=== PATIENT | male | born 1975 | race Caucasian/White ===

== ENCOUNTER 2021-03-07 09:32 | Emergency (ER) | payer BC ==
[~2021-03-07] VITALS: Ht 177.8 cm; Wt 99.8 kg
[2021-03-07] MEDS ORDERED: OXAYDO5 M1 PO (11:13)
== END 2021-03-07 11:33 | disposition home or self-care (01) ==
LOC: ER 09:32
DX: M25.561 Pain in right knee (principal); I10 Essential (primary) hypertension
CPT/HCPCS: 29505; 73562-RT; 99283-25; A9270

== ENCOUNTER 2022-12-04 15:27 | Emergency (ER) | payer BC ==
[~2022-12-04] VITALS: Ht 175.3 cm; Wt 112.9 kg
[~2022-12-04 15:27] MED LIST: ALBU90OI INH; FERROUS GLUCON324 M7 PO; LISINOPRIL-HCT1 EAC1 PO; MELO7.5 PO; METO50 PO; ONDA4ODT MM; OXAYDO5 M1 PO; PANTOPRAZOLE SO40 M2 PO; TRAM50 PO
[2022-12-04 16:26] LABS: BASOPHILS ABSOLUTE AUTO 0.06 K/mm3 (0.00-0.23); BASOPHILS PERCENT AUTO 1 % (0-2); EOSINOPHILS ABSOLUTE AUTO 0.05 K/mm3 (0.00-0.68); EOSINOPHILS PERCENT AUTO 1 % (0-6); Hemoglobin 11.9 g/dL (13.5-17.5); IMMATURE GRAN ABSOLUTE AUTO 0.08 K/mm3 (0.00-0.10); IMMATURE GRAN PERCENT AUTO 1 % (0-1); LYMPHOCYTES ABSOLUTE AUTO 2.17 K/mm3 (0.84-5.20); LYMPHOCYTES PERCENT AUTO 24 % (21-46); MONOCYTES ABSOLUTE AUTO 0.88 K/mm3 (0.16-1.47); MONOCYTES PERCENT AUTO 10 % (4-13); Mean Corpuscular HGB Conc 36.1 g/dL (31.5-36.5); Mean Corpuscular Volume 94 fL (80-100); Mean Platelet Volume 10.1 fL (9.1-12.4); NEUTROPHILS PERCENT AUTO 65 % (41-73); Platelet Count 170 K/mm3 (150-400); RDW Coefficient Variation 17.2 % (11.7-14.2); RDW Standard Deviation 59.1 fL (35.1-46.3); White Blood Cell Count 9.24 K/mm3 (4.00-11.30)
[2022-12-04 16:53] LABS: Albumin, Blood 2.5 g/dL (3.4-5.0); Albumin/Globulin Ratio 0.5 (0.8-1.8); Bilirubin, Total 9.9 mg/dL (0.1-1.0); Bun/Creatinine Ratio 11.2 (12.0-20.0); Calcium, Blood 8.2 mg/dL (8.5-10.1); Creatinine, Blood 0.54 mg/dL (0.60-1.20); Globulin, Blood 5.2 g/dL (2.2-4.0); Potassium, Blood 3.3 mmol/L (3.5-5.5); Total Protein, Blood 7.7 g/dL (6.4-8.2)
[2022-12-04 17:12] LABS: Source, Urine Clean Catch
[2022-12-04 17:16] LABS: Appearance, Urine Clear (Clear); Blood, Urine Neg (Neg); Color, Urine Amber (P-Yellow); Glucose Qualitative, Urine Neg (Neg); Ketones, Urine Neg (Neg); Leukocyte Esterase, Urine 1+ (Neg); Nitrite, Urine Neg (Neg); Protein, Urine 2+ (Neg); Urobilinogen, Urine 3+ (Normal)
[2022-12-04 17:31] LABS: Bilirubin, Urine 3+ (Neg)
[2022-12-04 17:32] LABS: Red Blood Cells, Urine 0-2 /hpf (0-2); White Blood Cells, Urine 0-2 /hpf (0-5)
[2022-12-04 17:33] LABS: Bacteria Few /hpf; Squamous Epithelial Cells Rare /hpf (Few)
[2022-12-04] MEDS ORDERED: MONT4 (20:31)
[2022-12-04] MEDS ORDERED: ROSUVASTATIN CA20 MG PO (20:31)
[2022-12-04] MEDS ORDERED: CHLO25 PO (21:38)
[2022-12-04] MEDS ORDERED: ONDA4ODT SL (21:38)
== END 2022-12-04 21:52 | disposition home or self-care (01) ==
LOC: ER 15:27
PROVIDERS: Emergency Medicine; Physician Assistant
DX: K75.9 Inflammatory liver disease, unspecified (principal); I10 Essential (primary) hypertension; Z79.899 Other long term (current) drug therapy
CPT/HCPCS: 36415; 76705; 80053; 81001; 83690; 85025; 87086; 96361; 96374; 96375; 99284-25; A9270; J1170; J2405; J7120

== ENCOUNTER 2023-01-14 01:24 | Day surgery (SDC) | payer BC ==
[~2023-01-14 01:24] MED LIST changes: +APHEN325 M2 PO; +ASCO500 PO; +B-1100 M1 PO; +Benadryl Itch28.3 G1 TOP; +CHLO25 PO; +CONSTULOSE10 GM/155 PO; +CUBICIN RF500 M1 IV; +FOLI1 PO; +MIRALAX17 GM PO; +MONT4; +MULVITA PO; +NEURONTIN300 MG PO; +ONDA4ODT SL; +OXYC10TA19 PO; +PHYTONADIONE5 MG PO; +ROSUVASTATIN CA20 MG PO; +SODBIC650 PO; +SODIUM THIOSULFATE IV; +TIZANIDINE HCL213 PO; +TOPROL XL50 MG PO; +Vitamin B-12100 MCG PO; +Voltaren100 GM TOP; +XIFAXAN550 MG PO
[2023-01-14 13:50] VITALS: BP 150/84
== END 2023-01-14 14:50 | disposition home or self-care (01) ==
LOC: ATC 01:24
DX: E83.59 Other disorders of calcium metabolism (principal); R78.81 Bacteremia; B95.62 Methicillin resistant Staphylococcus aureus infection as the cause of diseases classified elsewhere
CPT/HCPCS: 96365

== ENCOUNTER 2023-01-16 00:37 | Day surgery (SDC) | payer BC ==
[2023-01-16 14:14] VITALS: BP 144/83
== END 2023-01-16 15:20 | disposition home or self-care (01) ==
LOC: ATC 00:37
DX: E83.59 Other disorders of calcium metabolism (principal); R78.81 Bacteremia; B95.62 Methicillin resistant Staphylococcus aureus infection as the cause of diseases classified elsewhere; K70.30 Alcoholic cirrhosis of liver without ascites; I10 Essential (primary) hypertension; E78.5 Hyperlipidemia, unspecified; K21.9 Gastro-esophageal reflux disease without esophagitis; Z87.891 Personal history of nicotine dependence; Z79.899 Other long term (current) drug therapy
CPT/HCPCS: 96365

== ENCOUNTER 2023-01-19 00:02 | Day surgery (SDC) | payer BC ==
[2023-01-19 14:26] VITALS: BP 135/81
[2023-01-19 14:31] LABS: BASOPHILS ABSOLUTE AUTO 0.05 K/mm3 (0.00-0.23); BASOPHILS PERCENT AUTO 1 % (0-2); EOSINOPHILS ABSOLUTE AUTO 0.68 K/mm3 (0.00-0.68); EOSINOPHILS PERCENT AUTO 7 % (0-6); Hematocrit 26.1 % (37.0-53.0); Hemoglobin 8.6 g/dL (13.5-17.5); IMMATURE GRAN ABSOLUTE AUTO 0.05 K/mm3 (0.00-0.10); IMMATURE GRAN PERCENT AUTO 1 % (0-1); LYMPHOCYTES ABSOLUTE AUTO 2.51 K/mm3 (0.84-5.20); LYMPHOCYTES PERCENT AUTO 25 % (21-46); MONOCYTES ABSOLUTE AUTO 1.36 K/mm3 (0.16-1.47); MONOCYTES PERCENT AUTO 14 % (4-13); Mean Corpuscular Volume 94 fL (80-100); Mean Platelet Volume 8.9 fL (9.1-12.4); NEUTROPHILS ABSOLUTE AUTO 5.23 K/mm3 (1.96-9.15); NEUTROPHILS PERCENT AUTO 53 % (41-73); Platelet Count 279 K/mm3 (150-400); RDW Coefficient Variation 14.5 % (11.7-14.2); RDW Standard Deviation 49.1 fL (35.1-46.3); Red Blood Cell Count 2.77 M/mm3 (4.30-5.90); White Blood Cell Count 9.88 K/mm3 (4.00-11.30)
[2023-01-19 14:53] LABS: Albumin, Blood 2.5 g/dL (3.4-5.0); Albumin/Globulin Ratio 0.4 (0.8-1.8); Bilirubin, Total 1.4 mg/dL (0.1-1.0); Bun/Creatinine Ratio 9.2 (12.0-20.0); C-REACTIVE PROTEIN, EXT RANGE 4.82 mg/dL (0.000-0.300); Calcium, Blood 8.9 mg/dL (8.5-10.1); Creatinine, Blood 1.09 mg/dL (0.60-1.20); Globulin, Blood 6.7 g/dL (2.2-4.0); Potassium, Blood 3.7 mmol/L (3.5-5.5); Total Protein, Blood 9.2 g/dL (6.4-8.2)
== END 2023-01-19 15:27 | disposition home or self-care (01) ==
LOC: ATC 00:02
DX: E83.59 Other disorders of calcium metabolism (principal); R78.81 Bacteremia; B95.62 Methicillin resistant Staphylococcus aureus infection as the cause of diseases classified elsewhere; K70.30 Alcoholic cirrhosis of liver without ascites; I10 Essential (primary) hypertension; E78.5 Hyperlipidemia, unspecified; K21.9 Gastro-esophageal reflux disease without esophagitis; Z87.891 Personal history of nicotine dependence; Z79.899 Other long term (current) drug therapy
CPT/HCPCS: 80053; 82550; 85025; 86140; 96365

== ENCOUNTER 2023-01-21 02:39 | Day surgery (SDC) | payer BC ==
[2023-01-21 14:23] VITALS: BP 138/87
--- NOTE | 2023-01-21 15:38 | NUR ---
PT REQUESTED THE TRANSFUSION TO BE DONE OVER 1 HOUR VERSUS 30 MINUTES
== END 2023-01-21 15:25 | disposition home or self-care (01) ==
LOC: ATC 02:39
DX: E83.59 Other disorders of calcium metabolism (principal); R78.81 Bacteremia; B95.62 Methicillin resistant Staphylococcus aureus infection as the cause of diseases classified elsewhere; E78.5 Hyperlipidemia, unspecified; I10 Essential (primary) hypertension; Z79.899 Other long term (current) drug therapy
CPT/HCPCS: 96365

== ENCOUNTER 2023-01-26 13:25 | Day surgery (SDC) | payer BC ==
[2023-01-26 14:15] VITALS: BP 134/68
[2023-01-26 15:24] LABS: BASOPHILS ABSOLUTE AUTO 0.08 K/mm3 (0.00-0.23); BASOPHILS PERCENT AUTO 1 % (0-2); EOSINOPHILS ABSOLUTE AUTO 1.06 K/mm3 (0.00-0.68); EOSINOPHILS PERCENT AUTO 10 % (0-6); Hematocrit 28.7 % (37.0-53.0); Hemoglobin 9.3 g/dL (13.5-17.5); IMMATURE GRAN ABSOLUTE AUTO 0.05 K/mm3 (0.00-0.10); IMMATURE GRAN PERCENT AUTO 1 % (0-1); LYMPHOCYTES ABSOLUTE AUTO 2.86 K/mm3 (0.84-5.20); LYMPHOCYTES PERCENT AUTO 27 % (21-46); MONOCYTES PERCENT AUTO 11 % (4-13); Mean Corpuscular HGB 31.5 pg (26.0-34.0); Mean Corpuscular HGB Conc 32.4 g/dL (31.5-36.5); Mean Corpuscular Volume 97 fL (80-100); Mean Platelet Volume 8.5 fL (9.1-12.4); NEUTROPHILS ABSOLUTE AUTO 5.37 K/mm3 (1.96-9.15); NEUTROPHILS PERCENT AUTO 51 % (41-73); Platelet Count 443 K/mm3 (150-400); RDW Coefficient Variation 15.3 % (11.7-14.2); Red Blood Cell Count 2.95 M/mm3 (4.30-5.90); White Blood Cell Count 10.52 K/mm3 (4.00-11.30)
[2023-01-26 15:36] LABS: U Amphetamine Screen Not Detected; U Barbituate Screen Not Detected; U Benzodiazapine Screen DETECTED; U Buprenorphine Screen Not Detected; U Cannabinoids Screen Not Detected; U Cocaine Screen Not Detected; U Methadone Screen Not Detected; U Methamphetamine Screen Not Detected; U Opiates Screen Not Detected; U Oxycodone Screen DETECTED; U Phencyclidine Screen Not Detected; U Propoxyphene Screen Not Detected
[2023-01-26 15:38] LABS: International Normalized Ratio 1.07; Prothrombin Time Results 11.2 Sec (9.7-11.5)
[2023-01-26 15:55] LABS: Albumin, Blood 3.2 g/dL (3.4-5.0); Albumin/Globulin Ratio 0.5 (0.8-1.8); C-REACTIVE PROTEIN, EXT RANGE 1.95 mg/dL (0.000-0.300); Calcium, Blood 9.7 mg/dL (8.5-10.1); Creatinine, Blood 1.13 mg/dL (0.60-1.20); Globulin, Blood 6.5 g/dL (2.2-4.0); Total Protein, Blood 9.7 g/dL (6.4-8.2)
== END 2023-01-26 13:50 | disposition home or self-care (01) ==
LOC: ATC 13:25
DX: E83.59 Other disorders of calcium metabolism (principal); R78.81 Bacteremia; B95.62 Methicillin resistant Staphylococcus aureus infection as the cause of diseases classified elsewhere; I10 Essential (primary) hypertension; E78.5 Hyperlipidemia, unspecified; Z87.891 Personal history of nicotine dependence; Z79.899 Other long term (current) drug therapy
CPT/HCPCS: 36592; 80053; 82550; 85025; 85610; 86140